=== PATIENT | female | born 1970 | race Hispanic/Latino ===

== ENCOUNTER 2018-01-01 10:07 | Emergency (ER) | payer OTHER ==
[2018-01-01 10:38] LABS: #Eosinphils 0.1 thou/uL (0.0-0.7); #Lymphocytes 2.2 thou/uL (1.20-3.40); #Monocytes 0.4 thou/uL (0.11-0.59); #Neutrophils 2.8 thou/uL (1.40-6.50); %Basophils 0.8 % (0.0-1.0); %Eosinophils 1.4 % (0.0-10.0); %Lymphocytes 40.2 % (21.0-51.0); %Monocytes 7.1 % (0.0-10.0); %Neutrophils 50.6 % (42.0-75.0); Hemoglobin 12.4 g/dL (12.0-16.0); Mean Corpuscular HGB CONC 33.4 g/dL (32.0-36.0); Mean Corpuscular Hemoglobin 28.9 pg (27.0-31.0); Mean Corpuscular Volume 86.7 fl (81.0-99.0); Mean Platelet Volume 7.7 fL (7.4-10.4); Platelet Count 292 thou/uL (130-400); RBC Distribution Width 11.8 % (11.5-14.5); Red Blood Cell (RBC) Count 4.28 mill/uL (4.20-5.40); White Blood Cell (WBC) Count 5.6 thou/uL (4.8-10.8)
[2018-01-01 10:56] LABS: ALT (SGPT) 29 U/L (8-55); AST (SGOT) 21 U/L (5-34); Albumin 4.3 g/dL (3.5-5.0); Alkaline Phosphatase 54 U/L (40-150); Anion Gap 13 mmol/L (10-20); BUN (Urea Nitrogen) 17 mg/dL (7.0-18.7); Bilirubin, Total 0.3 mg/dL (0.2-1.2); Calc. Creatinine Clearance 0 mL/min (70-130); Calcium 9.4 mg/dL (7.8-10.44); Carbon Dioxide 20 mmol/L (22-29); Chloride 110 mmol/L (98-107); Estimated GFR-MDRD 73; Globulin 3.3 g/dL (2.4-3.5); Glucose 149 mg/dL (70-105); Lipase 21 U/L (8-78); Potassium 3.8 mmol/L (3.5-5.1); Protein, Total 7.6 g/dL (6.0-8.3); Sodium 139 mmol/L (136-145)
[2018-01-01 12:21] LABS: Bilirubin Negative (Negative); Blood, Urine Negative (Negative); Clarity CLOUDY (Clear); Glucose, Urine (Dipstick) Negative (Negative); Leukocyte Trace (Negative); Nitrite Positive (Negative); Protein, Urine (Dipstick) Negative (Neg-Trace); Specific Gravity, Urine 1.015 (1.002-1.036); Urobilinogen 0.2 mg/dL (0.2-1.0); pH, Urine 6.5 (5.0-9.0)
[2018-01-01 12:25] LABS: Bacteria/HPF 4+ HPF (None Seen); Hyaline Casts/LPF 0-3 HYALINE CAST LPF (0-3 Hyaline); Pathc Cast-AUWi Flag 0.29 (0-2.49); Squamous Epithelial 0-3 HPF (0-3)
[2018-01-01] MEDS ORDERED: cefTRIAXone\\ROCEPHIN 500 MG VIAL ONE (13:08)
[2018-01-01] MEDS ORDERED: Lidocaine 1% PF 5 ML VIAL ONE (13:09)
== END 2018-01-01 13:31 | disposition home or self-care (01) ==
LOC: ERS 10:07
DX: N30.00 Acute cystitis without hematuria (principal); R16.1 Splenomegaly, not elsewhere classified
CPT/HCPCS: 36415; 80053; 81003; 81015; 83690; 85025; 96372; J0696; J2001

== ENCOUNTER 2018-03-19 15:38 | Outpatient (CLI) | payer OTHER | END 2018-03-19 15:39 | disposition home or self-care (01) | LOC: BICMAMMO 15:38 | PROVIDERS: ATTEND Family Medicine | DX: Z12.31 Encounter for screening mammogram for malignant neoplasm of breast (principal) | CPT/HCPCS: 77063; 77067 ==

== ENCOUNTER 2018-06-03 07:59 | Outpatient (CLI) | payer OTHER ==
--- NOTE | 2018-06-03 10:18 | ULT ---
PELVIC ULTRASOUND WITH DOPPLER: (Transabdominal, transvaginal, Henry scale, color flow, and spectral Doppler) Date: 06/03/18 HISTORY: Abdominopelvic pain. FINDINGS: Uterus measures 10.8 x 7.6 x 4.9 cm. No focal mass or endometrial fluid is seen. Endometrium measures 1.4 cm in thickness. The right ovary measures 3.0 x 1.4 x 1.3 cm. The left ovary measures 3.0 x 2.0 x 2.3 cm. There is a 2 .4 cm cyst in the left ovary. No free fluid is seen. IMPRESSION: 1. 2.4 cm left ovarian cyst. 2. Endometrial thickness is 1.4 cm. POS: [facility]
--- NOTE | 2018-06-03 10:19 | ULT ---
ULTRASOUND ABDOMEN: Date: 06/03/18 HISTORY: Abdominal pain. FINDINGS: The liver demonstrates increased echogenicity consistent with fatty infiltration. No focal mass or in trahepatic ductal dilatation is seen. The spleen measures 10.7 cm in length. No gallstones, gallbladd er wall thickening, or pericholecystic fluid is seen. The common duct measures 2.0 mm in diameter. Th e pancreas is not well visualized due to overlying bowel gas. The visualized portions of the aorta an d IVC are unremarkable. No free fluid is seen. There is hydronephrosis bilaterally, more prominent on the left. No free fluid is seen. IMPRESSION: 1. Fatty liver. 2. Bilateral hydronephrosis. POS: [facility]
== END 2018-06-03 08:00 | disposition home or self-care (01) ==
LOC: BICULT 07:59
PROVIDERS: ATTEND Family Medicine
DX: R10.84 Generalized abdominal pain (principal); K76.0 Fatty (change of) liver, not elsewhere classified; N13.30 Unspecified hydronephrosis; N83.202 Unspecified ovarian cyst, left side; R93.89 Abnormal findings on diagnostic imaging of other specified body structures
CPT/HCPCS: 76700; 76856; 93976

== ENCOUNTER 2019-01-04 12:29 | Outpatient (CLI) | payer OTHER ==
--- NOTE | 2019-01-04 13:06 | RAD ---
ABDOMEN ONE VIEW: History: Calculus of kidney. Comparison: 04-10-17 FINDINGS: Faint small opacities are noted overlying both kidneys concerning for nonobstructing renal calculi. 0 .6 cm diameter calculus adjacent to the left L3 transverse process, evidence for a left ureteral calc ulus. No bowel obstruction. IMPRESSION: Evidence for left ureteral calculus. Depending upon concern, consider additional imaging with CT. Non obstructing bilateral renal calculi. Code T POS: [facility]
== END 2019-01-04 12:30 | disposition home or self-care (01) ==
LOC: BICRAD 12:29
PROVIDERS: ATTEND Urology
DX: N20.2 Calculus of kidney with calculus of ureter (principal)
CPT/HCPCS: 74018

== ENCOUNTER 2019-04-20 13:05 | Outpatient (CLI) | payer OTHER ==
--- NOTE | 2019-04-20 15:18 | CT ---
CT OF THE ABDOMEN AND PELVIS 04/20/19 COMPARISON: 11/10/13 HISTORY: Kidney stones. TECHNIQUE: Axial CT imaging at 5 mm intervals from the lung bases through the pubic symphysis without contrast. Coronal and sagittal reformatted imaging obtained. FINDINGS: The lack of contrast media limits assessment of the viscera, bowel, vascular structures, and for lymp hadenopathy. The imaged lung bases are unremarkable. There is no free intraperitoneal air or fluid evident. The hepatic parenchyma appears relatively hypodense suggesting steatosis. The gallbladder is decompressed and poorly assessed. The spleen, pancreas, and adrenal glands appear grossly unremarkable. There is a stone seen in the lower pole of the right kidney measuring 4 mm. There is no evidence for obstructive uropathy on the right. There is hydronephrosis and proximal hydroureter secondary to a pr oximal obstructing left ureteral calculus at the axial level of the L3-4 intervertebral disc space. T his obstructing stone within the proximal left ureter measures 4-5 mm. There are punctate intrarenal calculi within the upper pole of the left kidney and the lower pole of the left kidney. There are pro bably 4-5 such punctate left sided intrarenal calculi. Limited assessment of the bowel without oral contract media demonstrates no evidence for inflammatory change or obstruction. The appendix appears unremarkable. There is no acute osseous abnormality ana dent. IMPRESSION: 1. Obstructive uropathy on the left secondary to a 4-5 mm obstructing stone within the proximal left ureter. 2. Bilateral intrarenal calculi. POS: [facility]
== END 2019-04-20 13:06 | disposition home or self-care (01) ==
LOC: BICCT 13:05
PROVIDERS: ATTEND Urology
DX: N20.2 Calculus of kidney with calculus of ureter (principal); N13.9 Obstructive and reflux uropathy, unspecified
CPT/HCPCS: 74176

== ENCOUNTER 2019-06-24 10:55 | Outpatient (CLI) | payer OTHER ==
--- NOTE | 2019-06-24 11:18 | RAD ---
EXAM: Single view of the abdomen HISTORY: Kidney stones COMPARISON: 01/04/[address] abdomen/pelvis 04/20/2019 FINDINGS: Single view of the abdomen shows a nonspecific, nonobstructive bowel gas pattern. Small sta ble calcifications are seen in the lower pole of both kidneys. The bones are unremarkable. IMPRESSION: Bilateral nephrolithiasis
== END 2019-06-24 10:56 | disposition home or self-care (01) ==
LOC: RAD 10:55
PROVIDERS: ATTEND Urology
DX: N20.0 Calculus of kidney (principal)
CPT/HCPCS: 74018

== ENCOUNTER 2019-07-11 10:55 | Emergency (ER) | payer OTHER ==
[~2019-07-11 10:55] MED LIST: Iopamidol 370 76% 100 ML VIAL ONE
[2019-07-11 11:34] LABS: Bilirubin Negative (Negative); Blood, Urine Negative (Negative); Clarity Cloudy (Clear); Glucose, Urine (Dipstick) 250 mg/dL (Negative); Leukocyte Small (Negative); Nitrite Negative (Negative); Protein, Urine (Dipstick) 30 mg/dL (Neg-Trace); Urobilinogen 0.2 mg/dL (Less than 2)
[2019-07-11 11:41] LABS: Bacteria/HPF 3+ HPF (None Seen)
[2019-07-11 11:47] LABS: ALT (SGPT) 51 U/L (8-55); AST (SGOT) 31 U/L (5-34); Albumin 4.4 g/dL (3.5-5.0); Alkaline Phosphatase 117 U/L (40-110); Anion Gap 15 mmol/L (10-20); BUN (Urea Nitrogen) 14 mg/dL (9.8-20.1); Bilirubin, Total 0.5 mg/dL (0.2-1.2); Calc. Creatinine Clearance 0 mL/min (70-130); Calcium 9.7 mg/dL (7.8-10.44); Carbon Dioxide 23 mmol/L (22-29); Chloride 104 mmol/L (98-107); Estimated GFR-MDRD 72; Globulin 3.7 g/dL (2.4-3.5); Glucose 269 mg/dL (70-105); Lipase 14 U/L (8-78); Potassium 4.2 mmol/L (3.5-5.1); Protein, Total 8.1 g/dL (6.0-8.3); Sodium 138 mmol/L (136-145)
[2019-07-11 11:50] LABS: #Basophils 0.1 thou/uL (0.0-0.2); #Eosinphils 0.1 thou/uL (0.0-0.7); #Lymphocytes 1.1 thou/uL (1.20-3.40); #Monocytes 0.5 thou/uL (0.11-0.59); #Neutrophils 6.6 thou/uL (1.40-6.50); %Basophils 0.8 % (0.0-1.0); %Eosinophils 0.8 % (0.0-10.0); %Lymphocytes 13.3 % (21.0-51.0); %Monocytes 6.2 % (0.0-10.0); %Neutrophils 78.8 % (42.0-75.0); Hemoglobin 12.1 g/dL (12.0-16.0); Hypochromia SLIGHT = 6-15 cells (100X) (0-5/hpf); MDiff Complete? YES; Mean Corpuscular HGB CONC 30.7 g/dL (32.0-36.0); Mean Corpuscular Hemoglobin 23.5 pg (27.0-31.0); Mean Corpuscular Volume 76.4 fL (78.0-98.0); Microcytosis SLIGHT = 6-15 cells (100X) (0-5/hpf); Platelet Count 310 thou/uL (130-400); RBC Distribution Width 16.3 % (11.5-14.5); Red Blood Cell (RBC) Count 5.15 mill/uL (4.20-5.40); White Blood Cell (WBC) Count 8.3 thou/uL (4.8-10.8)
--- NOTE | 2019-07-11 12:29 | CT ---
EXAM: CT ABDOMEN AND PELVIS HISTORY: Abdominal pain. COMPARISON: None.. Procedure: Multiple contiguous axial images were obtained and a CT of the abdomen and pelvis with IV contrast. C oronal reformats were performed. FINDINGS: Lower Chest: Dependent atelectatic changes. Vessels: Normal caliber aorta. Heart: Normal heart size. Abdomen: Portal vein:Patent. Gallbladder: No calcified gallstones. Normal caliber wall. Liver: Diffuse hypoattenuation due to hepatic steatosis. No obvious hepatic masses. Pancreas: within normal limits. Spleen: within normal limits. Adrenals: within normal limits. Kidneys: Symmetric enhancement. Nonobstructing 3 to 4 mm calculi in the left and right intrarenal col lecting system. There is moderate bilateral hydronephrosis and hydroureter. Both proximal ureters are slightly prominent. Mid to distal ureters are decompressed. No evidence of calcifications along t he course of the left and right ureter. Peritoneum: No ascites or free air, no fluid collection. Bowel: Limited evaluation due to the lack of oral contrast administration. No evidence of bowel obstr uction. Ileocecal junction is unremarkable. Normal caliber appendix. Scattered fecal material in a nondistended, nondilated colon. Moderate amount of fecal material is noted in the distal sigmoid colo n and rectum. Significance is uncertain. Mesentery and Retroperitoneum: No enlarged mesenteric or retroperitoneal lymph nodes. Abdominal Wall: within normal limits. Pelvis: Reproductive Organs: Enlarged uterus with hypoattenuation in the endometrial canal. Correlate clinica lly. Pelvis: No mass, lymphadenopathy, free air or free fluid. Bladder: Normal mucosa. No evidence of bladder calculi. Bones: within normal limits. IMPRESSION: 1. Moderate bilateral hydronephrosis and dilatation of the proximal left ureters. No associated urete ral calculus. Urology consultation is recommended. 2. Bilateral nonobstructing intrarenal calculi. Transcribed Date/Time: 07/11/2019 12:34 PM
[2019-07-11] MEDS ORDERED: cefTRIAXone\\ROCEPHIN 1 GM VIAL ONE (13:32)
[2019-07-11] MEDS ORDERED: Ketorolac Tromethamine 30 MG/ML VIAL ONE (14:06)
[2019-07-11 14:07] LABS: Bilirubin Negative (Negative); Blood, Urine Moderate (Negative); Clarity Cloudy (Clear); Glucose, Urine (Dipstick) 100 mg/dL (Negative); Leukocyte Small (Negative); Nitrite Negative (Negative); Protein, Urine (Dipstick) 30 mg/dL (Neg-Trace); Urobilinogen 0.2 mg/dL (Less than 2)
[2019-07-11 14:11] LABS: Bacteria/HPF 3+ HPF (None Seen)
[2019-07-11 14:14] LABS: Squamous Epithelial 21-50 HPF (0-3)
== END 2019-07-11 14:39 | disposition home or self-care (01) ==
LOC: SCSER 10:55
DX: N13.30 Unspecified hydronephrosis (principal); N39.0 Urinary tract infection, site not specified; K59.00 Constipation, unspecified
CPT/HCPCS: 74177; 80053; 81003; 81015; 83605; 83690; 85025; 87077; 87086; 87186; 96361; 96372; 96374; 96375; J0500; J0696; J1885; Q9967

== ENCOUNTER 2022-03-29 00:11 | Emergency (ER) | payer BC, OTHER ==
[2022-03-29 00:33] LABS: #Basophils 0.2 thou/uL (0.0-0.2); #Eosinphils 0.1 thou/uL (0.0-0.7); #Lymphocytes 2.6 thou/uL (1.20-3.40); #Monocytes 0.5 thou/uL (0.11-0.59); #Neutrophils 2.9 thou/uL (1.40-6.50); %Basophils 2.5 % (0.0-1.0); %Lymphocytes 41.7 % (21.0-51.0); %Monocytes 7.1 % (0.0-10.0); %Neutrophils 46.8 % (42.0-75.0); Hemoglobin 15.8 g/dL (12.0-16.0); Mean Corpuscular HGB CONC 34.6 g/dL (32.0-36.0); Mean Corpuscular Hemoglobin 31.6 pg (27.0-31.0); Mean Corpuscular Volume 91.3 fL (78.0-98.0); Mean Platelet Volume 8.4 fL (7.4-10.4); Platelet Count 257 thou/uL (130-400); RBC Distribution Width 10.9 % (11.5-14.5); White Blood Cell (WBC) Count 6.3 thou/uL (4.8-10.8)
[2022-03-29 00:52] LABS: AST (SGOT) 23 U/L (5-34); Albumin 4.1 g/dL (3.5-5.0); Alkaline Phosphatase 143 U/L (40-110); Anion Gap 14 mmol/L (10-20); BUN (Urea Nitrogen) 18 mg/dL (9.8-20.1); Bilirubin, Total 0.6 mg/dL (0.2-1.2); Calc. Creatinine Clearance 0 mL/min (70-130); Calcium 9.8 mg/dL (7.8-10.44); Carbon Dioxide 25 mmol/L (22-29); Chloride 98 mmol/L (98-107); Estimated GFR 53; Globulin 3.9 g/dL (2.4-3.5); Glucose 414 mg/dL (70-105); Potassium 3.9 mmol/L (3.5-5.1); Sodium 133 mmol/L (136-145)
[2022-03-29 03:02] LABS: ALT (SGPT) 40 U/L (8-55)
== END 2022-03-29 01:56 | disposition home or self-care (01) ==
LOC: ERS 00:11
DX: G51.0 Bell's palsy (principal); R73.9 Hyperglycemia, unspecified
CPT/HCPCS: 36416; 70450; 80053; 85025; 93005; 96360

== ENCOUNTER 2022-05-06 09:31 | Outpatient (CLI) | payer BC | END 2022-05-06 09:32 | disposition home or self-care (01) | LOC: SCSMRI 09:31 | PROVIDERS: ATTEND Family Medicine | DX: R51.9 Headache, unspecified (principal) | CPT/HCPCS: 70551 ==

== ENCOUNTER 2023-01-07 14:03 | Outpatient (CLI) | payer BC ==
[2023-01-07 16:16] LABS: Hemoglobin 14.9 g/dL (12.0-15.5); Mean Corpuscular HGB CONC 34.9 g/dL (32.0-36.0); Mean Corpuscular Hemoglobin 29.7 pg (27.0-33.0); Mean Corpuscular Volume 85.2 fl (81.6-98.3); Mean Platelet Volume 10.7 fl (7.4-10.4); Platelet Count 342 10x3/uL (150-450); RBC Distribution Width 11.3 % (11.5-14.5); Red Blood Cell (RBC) Count 5.01 10x6/uL (3.90-5.03); White Blood Cell (WBC) Count 6.1 10x3/uL (3.5-10.5)
[2023-01-07 16:21] LABS: Anion Gap 16 mmol/L (10-20); BUN (Urea Nitrogen) 15 mg/dL (9.8-20.1); Calc. Creatinine Clearance 0 mL/min (70-130); Carbon Dioxide 23 mmol/L (22-29); Chloride 100 mmol/L (98-107); Estimated GFR 85; Potassium 4.1 mmol/L (3.5-5.1); Sodium 135 mmol/L (136-145)
[2023-01-07 16:22] LABS: INR-International Normal Ratio 0.9; PTT 26.5 sec (22.0-33.0); Prothrombin Time 9.9 sec (9.5-12.1)
[2023-01-07 16:28] LABS: Glucose 446 mg/dL (70-105)
== END 2023-01-07 14:04 | disposition home or self-care (01) ==
LOC: LABBT 14:03
PROVIDERS: ATTEND Urology
DX: Z01.812 Encounter for preprocedural laboratory examination (principal); N20.1 Calculus of ureter
CPT/HCPCS: 80048; 85027; 85610; 85730

== ENCOUNTER 2023-03-10 08:52 | Outpatient (CLI) | payer BC | END 2023-03-10 08:53 | disposition home or self-care (01) | LOC: BICULT 08:52 | PROVIDERS: ATTEND Urology | DX: N13.2 Hydronephrosis with renal and ureteral calculous obstruction (principal) | CPT/HCPCS: 76770 ==

== ENCOUNTER 2023-06-10 09:01 | Outpatient (CLI) | payer BC | END 2023-06-10 09:02 | disposition home or self-care (01) | LOC: CT 09:01 | PROVIDERS: ATTEND Urology | DX: N13.2 Hydronephrosis with renal and ureteral calculous obstruction (principal); R10.10 Upper abdominal pain, unspecified; K59.00 Constipation, unspecified; K57.30 Diverticulosis of large intestine without perforation or abscess without bleeding; K76.0 Fatty (change of) liver, not elsewhere classified | CPT/HCPCS: 74176 ==

== ENCOUNTER 2023-06-23 12:30 | Outpatient (CLI) | payer BC ==
[~2023-06-23 12:30] MED LIST changes: +Furosemide 40 MG/4 ML VIAL ONE; -Iopamidol 370 76% 100 ML VIAL ONE
== END 2023-06-23 12:31 | disposition home or self-care (01) ==
LOC: NM 12:30
PROVIDERS: ATTEND Urology
DX: N13.2 Hydronephrosis with renal and ureteral calculous obstruction (principal)
CPT/HCPCS: 78708; A4641; A9562; J1940